=== PATIENT | male | born 2000 | race Caucasian/White ===

== ENCOUNTER 2020-06-05 18:26 | Emergency (ER) | payer BC, SELFPAY ==
[2020-06-05 19:13] VITALS: BMI 20.8
--- NOTE | 2020-06-05 19:38 | PC.NURSE ---
Patient's aunt stated that she should bring him [place] [facility] and he'll jump off. He's been progressively getting worse for the last two days. He has not been sleeping or eating. He stated that his stomach has been growling but he is not been hungry. The Aunt states that he used to go to the gym possibly to cope with his extra energy and has seemed to get worse since he stopped. His Aunt is with him in the ED and is also his room mate. She states that this is a new presentation of symptoms and has been getting progressively more paranoid. Aunts states that he has been acting out of character.
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
--- NOTE | 2020-06-05 19:53 | PC.NURSE ---
Aunt states that he has been hording bottles of urine in his room. 68 bottles were found in his room.
[2020-06-05] MEDS: LORazepam 2 MG/ML INJ IM ×2 (19:58→21:52)
[2020-06-05] MEDS: HALOPERIDOL 5 MG/ML VIAL IM ×2 (19:59→21:52)
[2020-06-05] MEDS: diphenhydrAMINE 50 MG/ML VIAL IM ×2 (19:59→21:51)
--- NOTE | 2020-06-05 20:07 | PC.NURSE ---
Patient is now laying on the bed pad in room 13. Pt stands up to assess if he can get out of the door, and moves back to the bed.
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
--- NOTE | 2020-06-05 20:22 | PC.NURSE ---
Police outside patients door if needed. RN was able to go in and get blood drawn without needing police assistance.
[2020-06-05 20:40] LABS: Add Manual Diff / Slide Review NO; Basophils Absolute Auto 100 /uL (0-100); Basophils Percent Auto 0.8 % (0-2); Eosinophils Absolute Auto 0 /uL (0-450); Hematocrit 44.7 % (41-53); Hemoglobin 15.5 g/dL (13.5-17.5); Lymphocytes Absolute Auto 900 /uL (1100-4500); Mean Corpuscular HGB Conc 34.7 % (30-36); Mean Corpuscular Hemoglobin 29.6 PG (26-34); Mean Corpuscular Volume 85.2 fL (80-100); Monocytes Absolute Auto 600 /uL (0-900); Monocytes Percent Auto 6.6 % (3-14); Neutrophils Absolute Auto 7700 /uL (1500-7000); Neutrophils Percent Auto 82.6 % (50-75); Platelet Count 324 X10^3/uL (150-400); Red Blood Cell Count 5.25 X10^6/uL (4.5-5.9); Red Cell Distribution Width 13.3 % (11.6-14.8); White Blood Cell Count 9.4 X10^3/uL (4.5-11.0)
[2020-06-05 20:43] LABS: Alanine Aminotransferase 16 IU/L (<50); Albumin 5.4 g/dL (3.5-5.0); Albumin Globulin Ratio 1.6 (1.0-2.8); Alkaline Phosphatase 52 U/L (38-126); Aspartate Aminotransferase 24 IU/L (17-59); BUN Creatinine Ratio 15.8 (6-22); Bilirubin Total 0.9 mg/dL (0.2-1.3); Blood Urea Nitrogen 12 mg/dL (9-20); Calcium 10.1 mg/dL (8.4-10.2); Carbon Dioxide 24 mmol/L (22-32); Chloride 105 mmol/L (98-107); Estimated Glomerular Filt Rate > 60.0 mL/min (>60); Ethanol (ETOH) < 10 mg/dL; Globulin 3.3 g/dL (1.7-4.1); Glucose 131 mg/dL (70-100); HEMOLYSIS 16 (0-50); Potassium 3.7 mmol/L (3.4-5.1); Sodium 140 mmol/L (137-145); Total Protein 8.7 g/dL (6.3-8.2)
[2020-06-05 21:35] LABS: Thyroid Stimulating Hormone 2.56 uIU/mL (0.47-4.68)
[2020-06-05 21:46] LABS: Ur Creatinine 50 (Normal); Urine Tetrahydrocannabinol Positive (Negative); Urine pH 5 (Normal)
[2020-06-05 21:47] LABS: UR Morphine/Opiate cutoff 300 Negative (Negative); Urine Amphetamines Negative (Negative); Urine Barbiturates Negative (Negative); Urine Benzodiazepines Negative (Negative); Urine Cocaine Negative (Negative); Urine MDMA Negative (Negative); Urine Methadone Negative (Negative); Urine Methamphetamines Negative (Negative); Urine Oxycodone Negative (Negative); Urine Phencyclidine Negative (Negative); Urine Tricyclic Antidepressant Negative (Negative)
--- NOTE | 2020-06-05 21:47 | PC.NURSE ---
Bettie Cunningham on sitter 1:1 @ 2129. Introduced to Pt and Pt provided a urine sample. Aunt and sitter are in Rm talking with Pt. Pt is becoming agitated and aunt exits Rm. Sitter continues to speak with Pt as he removes his scrub pants and begins looking for someplace to tie the pants to hang himself. ie: showerhead and door handle that goes to outside of isolation rm. The attempts fail when the drawstring on the scrubs break. Pt then ties drawstring around neck and sits in the corner of the Rm. Nurse and Ed staff called to remove pants from Pt and offer him medication to calm him down. Pt complies and is now lying on mattress on floor with door closed
[2020-06-05 21:50] LABS: Bacteria Urine None Seen
[2020-06-05 21:52] LABS: Appearance Urine UA CLEAR; Bilirubin Urine UA NEGATIVE (NEGATIVE); Color Urine UA YELLOW; Glucose Urine UA TRACE g/dL (Negative); Ketones Urine UA 1+ (NEGATIVE); Leukocyte Esterase Urine UA NEGATIVE (NEGATIVE); Nitrite Urine UA NEGATIVE (Negative); Occult Blood Urine UA TRACE-LYSED (Negative); Protein Urine UA 1+ (Negative); Specific Gravity Urine UA 1.025 (1.000-1.035); Urobilinogen Urine UA 0.2 E.U./dL (0.2); pH Urine UA 5.5 (4.5-8.0)
--- NOTE | 2020-06-05 22:04 | PC.NURSE ---
Pt exhibiting harmful behaviour by tying his paper scrub top around his neck. Pt has red hill around neck from applying pressure with garment twisted up to choke self. Nurse and sitter go into Rm to remove garment from Pt. Pt states I need something longer than this Pt lets sitter take garment reluctantly. Pt left in rm sitting on mattress on the floor with door closed being watched via monitor and through door window
[2020-06-05 22:05] LABS: Culture Indicated Urine Cult Not Indicated; Mucus Urine 4+ (Negative); RBC Urine 0-1/HPF (0-5/HPF); Squamous Epithelial Cell Urine 0-1 /HPF (0-5/HPF); WBC Urine 0-1/HPF (0-5/HPF)
--- NOTE | 2020-06-05 22:31 | PC.NURSE ---
Pt lying on mattress eyes closed chest rising and falling
--- NOTE | 2020-06-05 22:51 | PC.NURSE ---
Aunt's name is Radha Berg. Her phone number is . She would like to be called with important updates. She went home for the night. John Paul lives with her.
--- NOTE | 2020-06-05 23:00 | PC.NURSE ---
Pt lying down eyes shut chest rising and falling
--- NOTE | 2020-06-05 23:04 | PC.NURSE ---
Patient gave us blood and urine and was cooperative. When we went in to introduce Musa he began to use his pants as a ligature around his neck. We took his pants away and gave him a chemical restraint per provider order. Shortly after he began to use his shirt as a ligature device. We removed his shirt and left him in the room with his underwear and socks on. He was cooperative and gave us both articles of clothing.
--- NOTE | 2020-06-05 23:06 | PC.NURSE ---
warm blankets provided
--- NOTE | 2020-06-05 23:37 | DI.CT.S_ITS ---
PROCEDURE: CT HEAD/BRAIN WO CON INDICATIONS: sudden behavior change TECHNIQUE: Noncontrast 4.5 mm thick angled axial sections acquired from the foramen magnum to the vertex, with coronal and sagittal reformats. For radiation dose reduction, the following was used: automated exposure control, adjustment of mA and/or kV according to patient size. COMPARISON: None. FINDINGS: Image quality: Excellent. CSF spaces: Basal cisterns are patent. No extra-axial fluid collections. Ventricles are normal in size and shape. Brain: No midline shift. No intracranial masses or hemorrhage. Johnson-white matter interface is normal. Skull and face: Calvarium and visualized facial bones are intact, without suspicious lesions. Sinuses: Visualized sinuses and mastoids are clear. IMPRESSION: Normal noncontrast head CT, without findings of masses or hemorrhage. Note: No significant discrepancy from the preliminary report. Dictated by: Osito Colvin M.D. on 06/06/2020 at 8:49 Approved by: Osito Colvin M.D. on 06/06/2020 at 8:49
[2020-06-06 00:03] VITALS: BP 125/60; PULSE 77; RESP 16; TEMP 37.2; O2SAT 100
--- NOTE | 2020-06-06 00:04 | PC.NURSE ---
Pt taken on [facility] to Ct scan with nurse and Pt drowsy and cooperative. Pt returned to isolation to mattress on floor, Vital signs taken and warm blankets and pillow provided
--- NOTE | 2020-06-06 00:30 | PC.NURSE ---
Pt lying on mattress on floor, eyes closed, chest rising and falling
--- NOTE | 2020-06-06 01:46 | PC.NURSE ---
Pt lying on mattress on floor. Eyes closed chest rising and falling
--- NOTE | 2020-06-06 03:16 | PC.NURSE ---
Pt eyes shut, chest rising and falling
--- NOTE | 2020-06-06 06:07 | PC.NURSE ---
and nurse in speaking with Pt
[2020-06-06 06:08] VITALS: BP 135/87; PULSE 87; RESP 18; TEMP 36.9; O2SAT 98
[2020-06-06 07:27] LABS: COVID19 -Nasal RAPID Negative (Negative)
--- NOTE | 2020-06-06 08:30 | PC.NURSE ---
RAFAEL Connors called and requested report faxed to secure fax [phone]. Report faxed.
--- NOTE | 2020-06-06 11:18 | PC.NURSE ---
1115 Pt is laying quietly on his right side and appears to be sleeping. The door is locked. This SUCTION PLATE ROLLER HAND is sitting 1:1 to monitor patient.
--- NOTE | 2020-06-06 12:59 | PC.NURSE ---
DCR in to speak with patient at this time.
--- NOTE | 2020-06-06 13:08 | PC.NURSE ---
1300 The patient is sitting on his bed eating lunch. Up to the bathroom and voided. He is calm and cooperative. The door is locked and constant monitoring in place.
--- NOTE | 2020-06-06 14:27 | PC.NURSE ---
Radha, the pt's aunt, is in the room with the pt. Pt is calm and laying down. Door is left open while Aunt is at bedside. 1:1 monitoring continues.
[2020-06-06 15:15] VITALS: BP 132/75; PULSE 90; RESP 18; TEMP 36.9; O2SAT 97
--- NOTE | 2020-06-06 15:31 | PC.NURSE ---
Patient awake, calm, alert, oriented. I formed a verbal safety agreement with him, he agreed that he would not choke himself with scrubs, and that he would not attempt to leave the ER. I provided him paper scrubs, traction socks, and am leaving the door open.
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
[2020-06-06 17:45] VITALS: BP 126/61; PULSE 76; RESP 18; TEMP 36.7; O2SAT 98
== END 2020-06-06 17:58 ==
PROVIDERS: Emergency Medicine; Emergency Provider Emergency Medicine
DX: R45.851 Suicidal ideations (principal); F22 Delusional disorders; R45.1 Restlessness and agitation
CPT/HCPCS: 70450; 80053; 80305; 80320; 81001; 84443; 85025; 87635; 96372; 99285; J1200; J1630; J2060